=== PATIENT | female | born 1960 ===

== ENCOUNTER 2022-03-18 05:16 | Observation (INO) ==
[2022-03-18] MEDS ORDERED: ceFAZolin 2,000 MG/50 ML DUPLEX IV ONE (05:47)
[2022-03-18] MEDS ORDERED: VANCOMYCIN 1,000 MG VIAL ONE (05:47)
[2022-03-18] MEDS: LACTATED RINGERS 1,000 ML IV SCH ×3 (06:06→14:45)
[2022-03-18] MEDS ORDERED: ACETAMINOPHEN 500 MG TABLET PO ONE (06:39)
[2022-03-18] MEDS ORDERED: GABAPENTIN 400 MG CAPSULE PO ONE (06:39)
[2022-03-18] MEDS ORDERED: FAMOTIDINE 20 MG TABLET PO ONE (06:39)
[2022-03-18] MEDS ORDERED: DIAZEPAM 5 MG TABLET PO ONE (06:39)
[2022-03-18] MEDS ORDERED: LACTATED RINGERS 1,000 ML IV SCH (07:00)
[2022-03-18 07:25] LABS: INR 0.9; PT Patient Result 10.4 SECS (10.1-12.1); Partial Thromboplastin Time 27.9 SECS (23.7-32.9)
[2022-03-18] MEDS ORDERED: DEXAMETHASONE 4 MG/1 ML VIAL ONE (10:02)
[2022-03-18] MEDS ORDERED: LIDOCAINE 1% 5 ML VIAL ONE (10:02)
[2022-03-18] MEDS ORDERED: MIDAZOLAM 2 MG/2 ML VIAL ONE (10:02)
[2022-03-18] MEDS ORDERED: fentaNYL 100 MCG/2 ML VIAL ONE (10:02)
[2022-03-18] MEDS ORDERED: ROPIVACAINE 0.5% 30 ML VIAL ONE (10:03)
[2022-03-18] MEDS ORDERED: TRANEXAMIC ACID 1,000 MG/10 ML VIAL ONE (10:20)
[2022-03-18] MEDS ORDERED: LIDOCAINE 2% 5 ML VIAL ONE (10:20)
[2022-03-18] MEDS ORDERED: propofoL 200 MG/20 ML VIAL IV ONE (10:20)
[2022-03-18] MEDS ORDERED: ONDANSETRON 4 MG/2 ML VIAL ONE (10:20)
[2022-03-18] MEDS ORDERED: ACETAMINOPHEN INJ 1,000 MG/100 ML VIAL IV ONE (10:20)
[2022-03-18] MEDS ORDERED: buprenorphine HCL 0.3 MG/ML VIAL ONE (10:22)
[2022-03-18] MEDS ORDERED: MAGNESIUM HYDROXIDE SUSP 30 ML UDCUP PO PRN (10:54)
[2022-03-18] MEDS ORDERED: ONDANSETRON 4 MG/2 ML VIAL IV PRN (10:55)
[2022-03-18] MEDS ORDERED: diphenhydrAMINE CAP 25 MG CAPSULE PO PRN (10:55)
[2022-03-18] MEDS ORDERED: ZALEPLON 5 MG CAPSULE PO PRN (10:55)
[2022-03-18] MEDS ORDERED: MORPHINE 2 MG/1 ML SYRINGE IV PRN ×2 (10:55)
[2022-03-18] MEDS ORDERED: SUCCINYLCHOLINE 200 MG/10 ML VIAL ONE (11:30)
[2022-03-18] MEDS ORDERED: ROCURONIUM 50 MG/5 ML VIAL IV ONE (11:30)
[2022-03-18] MEDS ORDERED: PHENYLEPHRINE 10 MG/1 ML VIAL IV ONE (11:56)
[2022-03-18] MEDS ORDERED: SUGAMMADEX 200 MG/2 ML VIAL IV ONE (12:28)
[2022-03-18] MEDS ORDERED: SEVOFLURANE 1 UNIT/15 MINUTE INH ONE (12:36)
[2022-03-18] MEDS ORDERED: flumazeniL 0.5 MG/5 ML VIAL IV ONE (13:15)
[2022-03-18] MEDS: ceFAZolin 2,000 MG/50 ML DUPLEX IV SCH ×2 (14:45→22:15)
[2022-03-18] MEDS: KETOROLAC 30 MG/1 ML VIAL IV SCH ×3 (14:56→22:15)
[2022-03-18] MEDS: DOCUSATE SODIUM 100 MG CAPSULE PO SCH (22:15)
[2022-03-19] MEDS: LACTATED RINGERS 1,000 ML IV SCH (04:15)
[2022-03-19 05:29] LABS: Basophils % 0.2 % (0.0-0.8); Hematocrit 31.9 VOL% (35.7-47.0); Immature Granulocytes % 0.4 %; Immature Granulocytes Absolute 0.03 #; Lymphocytes # 1.1 10*3/uL (1.4-4.0); Lymphocytes % 13.3 % (21.3-54.2); Mean Corpuscular HGB Conc 31.3 GM/DL (32-36); Mean Corpuscular Volume 88.6 FL (87-102); Mean Platelet Volume 10.4 FL (9.6-12.0); Monocytes # 0.8 10*3/uL (0.11-0.8); Monocytes % 9.3 % (1.7-12.7); Neutrophils % 76.8 % (38.7-73.9); Platelet Count 279 T/CUMM (130-400); Red Cell Distribution Width 13.1 % (9.3-17.3); White Blood Count 8.5 T/CUMM (4-12)
[2022-03-19] MEDS: KETOROLAC 30 MG/1 ML VIAL IV SCH (05:30)
[2022-03-19] MEDS: FONDAPARINUX 2.5 MG/0.5 ML SYRINGE SUBCUT SCH (05:30)
[2022-03-19 05:35] LABS: Calcium 8.6 MG/DL (8.5-10.1); Osmolality,Calculated 276.7 MOS/KG (273-304); Potassium 3.7 MMOL/L (3.5-5.1)
[2022-03-19] MEDS: DOCUSATE SODIUM 100 MG CAPSULE PO SCH ×2 (08:29→20:36)
[2022-03-19] MEDS: LISINOPRIL/HCTZ 10-12.5 MG TABLET PO SCH (08:29)
[2022-03-19] MEDS ORDERED: SODIUM CHLORIDE 0.9% 1,000 ML IV ONE (15:26)
[2022-03-19] MEDS: SODIUM CHLORIDE 0.9% 1,000 ML IV SCH (17:57)
[2022-03-20 04:42] LABS: Basophils % 0.2 % (0.0-0.8); Eosinophils # 0.1 10*3/uL (0.0-0.87); Eosinophils % 1.2 % (0.00-10.9); Hematocrit 27.9 VOL% (35.7-47.0); Hemoglobin 8.6 GM/DL (12.0-16.0); Immature Granulocytes % 0.2 %; Immature Granulocytes Absolute 0.02 #; Lymphocytes # 2.5 10*3/uL (1.4-4.0); Lymphocytes % 30.5 % (21.3-54.2); Mean Corpuscular HGB Conc 30.8 GM/DL (32-36); Mean Corpuscular Volume 89.4 FL (87-102); Mean Platelet Volume 10.1 FL (9.6-12.0); Monocytes # 0.8 10*3/uL (0.11-0.8); Monocytes % 9.5 % (1.7-12.7); Neutrophils % 58.4 % (38.7-73.9); Platelet Count 228 T/CUMM (130-400); Red Blood Count 3.12 MC/CUMM (3.8-5.5); Red Cell Distribution Width 13.3 % (9.3-17.3); White Blood Count 8.2 T/CUMM (4-12)
[2022-03-20] MEDS: SODIUM CHLORIDE 0.9% 1,000 ML IV SCH (04:43)
[2022-03-20] MEDS: FONDAPARINUX 2.5 MG/0.5 ML SYRINGE SUBCUT SCH (05:50)
[2022-03-20] MEDS: LISINOPRIL/HCTZ 10-12.5 MG TABLET PO SCH (08:55)
[2022-03-20] MEDS: DOCUSATE SODIUM 100 MG CAPSULE PO SCH ×2 (09:06→21:39)
[2022-03-21 05:59] LABS: Basophils % 0.3 % (0.0-0.8); Eosinophils # 0.2 10*3/uL (0.0-0.87); Eosinophils % 1.9 % (0.00-10.9); Hematocrit 27.7 VOL% (35.7-47.0); Hemoglobin 8.6 GM/DL (12.0-16.0); Immature Granulocytes % 0.5 %; Immature Granulocytes Absolute 0.05 #; Lymphocytes # 2.8 10*3/uL (1.4-4.0); Lymphocytes % 28.8 % (21.3-54.2); Mean Corpuscular Volume 89.1 FL (87-102); Mean Platelet Volume 9.7 FL (9.6-12.0); Monocytes # 0.8 10*3/uL (0.11-0.8); Monocytes % 8.8 % (1.7-12.7); Neutrophils % 59.7 % (38.7-73.9); Platelet Count 247 T/CUMM (130-400); Red Blood Count 3.11 MC/CUMM (3.8-5.5); Red Cell Distribution Width 13.5 % (9.3-17.3); White Blood Count 9.55 T/CUMM (4-12)
[2022-03-21] MEDS: FONDAPARINUX 2.5 MG/0.5 ML SYRINGE SUBCUT SCH (06:13)
[2022-03-21 06:27] LABS: Hypochromia Slight; Platelet Estimate Normal
[2022-03-21 08:48] VITALS: BP 104/62
[2022-03-21] MEDS: DOCUSATE SODIUM 100 MG CAPSULE PO SCH (09:19)
[2022-03-21] MEDS: LISINOPRIL/HCTZ 10-12.5 MG TABLET PO SCH (09:19)
== END 2022-03-21 10:30 | disposition home health service (06) ==
LOC: N.SDSINP 05:16 → INTOOBSV 05:16 → N.3E 14:15
PROVIDERS: ADMIT Orthopaedic Surgery; ATTEND Orthopaedic Surgery